=== PATIENT | male | born 1990 | race Caucasian/White ===

== ENCOUNTER 2021-11-24 12:27 | Inpatient (IN) | payer MEDICARE, MEDICAID, SELFPAY ==
--- NOTE | ~2021-11-24 | XR_ITS ---
EXAMINATION: XR CHEST CLINICAL INFORMATION: Cough. COMPARISON: None TECHNIQUE: 2 views of the chest were obtained. FINDINGS: The lungs are well-expanded with patchy opacity seen in the lingula and right middle lobe suspicious for developing infiltrate. The upper lungs are clear. The heart size and progress clarities normal. No gross bony abnormality seen. XR/XR chest 2V IMPRESSION: Patchy opacity seen in the lingula and right middle lobe suspicious for developing infiltrates.
--- NOTE | ~2021-11-24 | CT_ITS ---
EXAMINATION: CT ANGIOGRAM OF THE CHEST WITH AND WITHOUT CONTRAST (CT PULMONARY ANGIOGRAM FOR PE) CLINICAL INFORMATION: Shortness of breath, elevated d-dimer. COMPARISON: Chest radiograph done earlier today at 1:25 PM. TECHNIQUE: Prior to contrast administration, noncontrast localization images were obtained. Subsequently, multidetector volumetric imaging was performed from the thoracic inlet to below the diaphragms following the administration of 75 mL Omnipaque 350 intravenous contrast. No contrast reaction reported Sagittal, coronal, and MIP oblique sagittal reformatted images were obtained on the CT workstation, uploaded to PACS, and reviewed. This CT examination was performed using dose optimization techniques as appropriate, variously including the following: *Automated exposure control *Adjustment of mA and/or kV according to patient size (this includes techniques or standardized protocols for targeted exams where dose is matched to indication/reason for exam; i.e. extremities or head) *Use of iterative reconstruction technique Total exam dose-length product 316 mGy-cm FINDINGS: QUALITY OF STUDY/CONTRAST BOLUS: Suboptimal. PULMONARY ARTERIES: Evaluation of segmental and subsegmental branches is essentially nondiagnostic due to motion and overlying airspace opacities. No central pulmonary emboli are visualized. THORACIC AORTA: No aneurysm or dissection. LUNG: Multifocal airspace opacities with a predilection for the peripheral and lower lungs. In this setting, evaluation of pulmonary nodules is suboptimal. PLEURA: No pleural effusion or pneumothorax. MEDIASTINUM: Normal heart size. No pericardial effusion. No evidence of septal bowing or right heart strain. There are a few prominent mediastinal and hilar lymph nodes, for instance measuring up to 0.8 cm in maximum short axis in the prevascular space (5:158). There is a 0.9 cm hypoattenuating nodule in the left lobe of the thyroid which does not meet the criteria for further follow-up. CHEST WALL/AXILLA: No axillary or internal mammary lymphadenopathy. OSSEOUS STRUCTURES: No acute or suspicious osseous abnormality. UPPER ABDOMEN: Unremarkable. No reflux of contrast into the hepatic veins to suggest elevated right heart pressures. CT/CT angio chest PE protocol IMPRESSION: Limited evaluation of pulmonary emboli due to motion and overlying airspace opacities making visualization of segmental and subsegmental branches essentially nondiagnostic. No central pulmonary emboli. No evidence of increased right-sided heart pressures. Extensive multifocal airspace opacities. Enlarged mediastinal and hilar lymph nodes are likely reactive. VTE: indeterminate
[2021-11-24 13:10] VITALS: PULSE 114; RESP 18; TEMP 37.8; O2SAT 89; BMI 25.8
[2021-11-24 14:30] LABS: MANUAL DIFF FLAG NO
[2021-11-24 14:34] LABS: Hematocrit 41.6 % (42.0-52.0); Hemoglobin 14.4 g/dl (14.0-18.0); Imm Gran Abs Auto 0.02 X10*3/uL (0.00-0.03); Imm Gran Pct Auto 0.3 % (0.0-0.4); Lymphocytes Absolute Auto 0.8 X10*3/uL (1.2-4.9); Lymphocytes Percent Auto 11.7 % (20-40); Mean Corpuscular HGB Conc 34.6 g/dl (31.0-36.0); Mean Corpuscular Hemoglobin 30.6 pg (27.0-33.0); Mean Corpuscular Volume 88.3 fL (80.0-98.0); Monocytes Absolute Auto 0.2 X10*3/uL (0.1-1.2); Monocytes Percent Auto 3.6 % (2-11); Neutrophils Absolute Auto 5.6 x10*3/uL (2.0-8.3); Neutrophils Percent Auto 84.4 % (45-73); Platelet Count 148 X10*3/uL (160-400); Red Blood Count 4.71 X10*6/uL (4.60-5.80); Red Cell Distribution Width 12.3 % (11.0-16.0); White Blood Count 6.7 X10*3/uL (4.8-10.8)
[2021-11-24 14:41] LABS: COVID-19 Test Positive (Negative)
[2021-11-24 14:43] LABS: D Dimer High Sensitivity 654 NG/ML
[2021-11-24 14:47] LABS: Alanine Aminotransferase 52 U/L (0-40); Albumin Level 3.9 g/dL (3.5-5.0); Alkaline Phosphatase 42 U/L (39-117); Anion Gap 12 (12-20); Aspartate Amino Transferase 84 U/L (5-37); Bilirubin Total 0.6 mg/dL (0.0-1.0); Blood Urea Nitrogen 9 mg/dL (9-16); Calcium 8.7 mg/dL (8.4-10.2); Carbon Dioxide 28 mmol/L (22-29); Chloride 99 mmol/L (96-108); Creatinine Clr Calc Pharmacy 128.2; Estimated Glomerular Filt Rate > 60; Glucose Random 104 mg/dL (60-115); Potassium 4.3 mmol/L (3.3-5.1); Sodium 135 mmol/L (135-145); Total Protein 6.7 g/dL (6.5-8.0)
--- NOTE | 2021-11-24 15:36 | ED.SOB ---
HPI - SOB/Dyspnea General Chief Complaint: Dyspnea Stated Complaint: covid+ - diff breathing Time Seen by Provider: 11/24/21 15:13 History of Present Illness HPI Narrative: Patient is a 31-year-old male with no significant past medical history. He reports that he has been symptomatic for COVID-19 time x 9 days, tested positive 7 days ago. Has not been vaccinated for COVID-19. Initially reports complaints of body aches, fevers, fatigue, headaches, sore throat. Over the past 3 days he has developed productive cough, dyspnea with exertion, and chest discomfort with coughing and deep breathing. MD elicited complaint: shortness of breath, cough and pain with inspiration Onset (ago): day(s) Context: recent illness Timing: progressively worsening Exacerbating factors: exertion Relieving factors: rest Associated symptoms: pain with inspiration, cough and sputum production Treatment prior to arrival: none Related Data Home oxygen amount: none Allergies Allergy/AdvReac Type Severity Reaction Status Date / Time No Known Allergies Allergy Verified 11/24/21 13:09 Review of Systems Review of Systems: Constitutional: No weight loss, fever, chills, weakness or fatigue. HEENT: No visual loss, blurred vision, double vision or yellow sclera. No hearing loss, sneezing, congestion, runny nose or sore throat. Skin: No rash or itching. Cardiovascular: + chest discomfort is noted in the HPI. No palpitations or pedal edema. Respiratory: + cough, dyspnea on exertion Gastrointestinal: No anorexia, nausea, vomiting or diarrhea. No abdominal pain or blood in stool. Genitourinary: No burning micturition. No urinary frequency or incontinence. Neurologic: No headache, dizziness, syncope, unilateral weakness, ataxia, numbness or tingling in the extremities. No change in bowel or bladder control. Musculoskeletal: No muscle pain, back pain, joint pain or stiffness. Hematologic: No bleeding or bruising. Lymphatics: No enlarged lymph nodes. Psychiatric:No depression or anxiety. Endocrine: No reports of sweating. No cold or heat intolerance. No polyuria or polydipsia. FORMERLY [facility], [facility]–1983 Past Medical History Attestation statement: The following information was validated with the patient. Source: old records reviewed Social History Social History (Updated 11/24/21 @ 17:52 by Anna Ulrich MD) Patient Tobacco Use Status: Never used Tobacco Advance Directives: No Advance Directives Information Provided: Yes Physical Exam Vital Signs: Vital Signs: Last Vital Signs Temp 100.8 F H 11/24/21 17:16 Pulse 97 11/24/21 17:16 Resp 22 H 11/24/21 17:16 BP 125/74 11/24/21 17:16 Pulse Ox 95 11/24/21 17:16 BMI result Body Mass Index 25.8 Vital signs have been reviewed and appeared to be correct. Blood pressure normal.? Heart rate abnormal, initial tachycardia.? Respiration rate normal. Temperature normal.? Oxygen saturation abnormal, initial hypoxia on exertion. Appearance: Alert.? Oriented X3.? No acute distress.?? Eyes: Pupils equal, round and reactive to light.?? ENT: Pharynx normal.?? Neck: Normal inspection.? Neck supple.?? CVS: Normal heart rate and rhythm.? Pulses normal.?? Respiratory: No respiratory distress, placed on oxygen via nasal cannula. Lungs sounds clear to auscultation except right middle lobe, right lower lobe with rhonchi. Abdomen: Soft and non-tender.?? Skin: Skin warm and dry.? Normal skin color.? Normal skin turgor.?? Extremities: No lower extremity edema.? No calf ttp? Neuro: Oriented X 3.? No motor deficit.? No sensory deficit. Course Course Course Narrative: 1530: 31-year-old male with COVID-19 infection. Presented to the emergency department with initial O2 saturation 89%, was placed on 2 L via nasal cannula. During initial exam O2 saturation 99% on 2 L via nasal cannula, tachycardic, 108 and febrile 100.6. Chest x-ray concerning for patchy opacity seen in the lingula and right middle lobe suspicious for developing infiltrates. No leukocytosis, mild thrombocytopenia platelet count 148, AST/ALT mildly elevated at 84/52 with no prior labs for comparison. At this time, suspect viral infection due to COVID-19 do not suspect bacterial infection at this time, however, will obtain lactic acid. D-dimer is elevated 654, therefore will do CT angio chest to exclude PE. 1710: Ambulatory trial reveals O2 saturation 89%, tachycardia to 140. CT angio chest revealed extensive multifocal airspace opacities, indeterminate for pulmonary emboli. CRP elevated, 15.16, LDH elevated, 877, ferritin elevated 1089, procalcitonin 0.14. Decadron IV ordered, continues to be febrile, will give Toradol. Spoke with Mich Taylor MD, hospitalist regarding CT scan indeterminate for PE, shared decision making, patient will have Lovenox 1 mg/kilogram. 1753: Dr. Ulrich accepted patient for admission. MDM - SOB/Dyspnea Medical Records Attestation: I reviewed the patient's medical records. Lab Data Attestation: I reviewed the patient's lab results. Result diagrams: 11/24/21 14:24 11/24/21 14:24 Labs: Lab Results 11/24/21 11/24/21 11/24/21 Range/Units 14:24 14:24 14:24 WBC 6.7 (4.8-10.8) X10*3/uL RBC 4.71 (4.60-5.80) X10*6/uL Hgb 14.4 (14.0-18.0) g/dl Hct 41.6 L (42.0-52.0) % MCV 88.3 (80.0-98.0) fL MCH 30.6 (27.0-33.0) pg MCHC 34.6 (31.0-36.0) g/dl RDW 12.3 (11.0-16.0) % Plt Count 148 L (160-400) X10*3/uL MPV 10.0 (9.4-12.4) fL Immature Gran % (Auto) 0.3 (0.0-0.4) % Neut % (Auto) 84.4 H (45-73) % Lymph % (Auto) 11.7 L (20-40) % [place] % (Auto) 3.6 (2-11) % Eos % (Auto) 0.0 (0-4) % Baso % (Auto) 0.0 (0-2) % Lymph # (Auto) 0.8 L (1.2-4.9) X10*3/uL [place] # (Auto) 0.2 (0.1-1.2) X10*3/uL Eos # (Auto) 0.0 (0.0-0.4) X10*3/uL Baso # (Auto) 0.0 (0.0-0.2) X10*3/uL Abs Immat Gran (auto) 0.02 (0.00-0.03) X10*3/uL Absolute Neuts (auto) 5.6 (2.0-8.3) x10*3/uL Absolute Nucleated RBC 0.000 (0.0-0.012) X10*3/uL Nucleated RBC % (auto) 0.0 (0.0-0.2) /100WBC D-Dimer High Sensitivty NG/ML Sodium 135 (135-145) mmol/L Potassium 4.3 (3.3-5.1) mmol/L Chloride 99 (96-108) mmol/L Carbon Dioxide 28 (22-29) mmol/L Anion Gap 12 (12-20) BUN 9 (9-16) mg/dL Creatinine 0.85 (0.5-1.4) mg/dL Estim Creat Clear Calc 128.2 Estimated GFR > 60 Random Glucose 104 (60-115) mg/dL Lactic Acid (0.5-2.0) mmol/L Calcium 8.7 (8.4-10.2) mg/dL Ferritin 1089 H (20-250) ng/mL Total Bilirubin 0.6 (0.0-1.0) mg/dL AST 84 H (5-37) U/L ALT 52 H (0-40) U/L Alkaline Phosphatase 42 (39-117) U/L Lactate Dehydrogenase 877 H (118-273) U/L C-Reactive Protein 15.16 H (< or = 0.50) mg/dL Total Protein 6.7 (6.5-8.0) g/dL Albumin 3.9 (3.5-5.0) g/dL Procalcitonin ng/mL COVID-19 (VIDA) Positive A (Negative) COVID-19 Clin Com See Note 11/24/21 11/24/21 11/24/21 Range/Units 14:24 14:25 15:46 WBC (4.8-10.8) X10*3/uL RBC (4.60-5.80) X10*6/uL Hgb (14.0-18.0) g/dl Hct (42.0-52.0) % MCV (80.0-98.0) fL MCH (27.0-33.0) pg MCHC (31.0-36.0) g/dl RDW (11.0-16.0) % Plt Count (160-400) X10*3/uL MPV (9.4-12.4) fL Immature Gran % (Auto) (0.0-0.4) % Neut % (Auto) (45-73) % Lymph % (Auto) (20-40) % [place] % (Auto) (2-11) % Eos % (Auto) (0-4) % Baso % (Auto) (0-2) % Lymph # (Auto) (1.2-4.9) X10*3/uL [place] # (Auto) (0.1-1.2) X10*3/uL Eos # (Auto) (0.0-0.4) X10*3/uL Baso # (Auto) (0.0-0.2) X10*3/uL Abs Immat Gran (auto) (0.00-0.03) X10*3/uL Absolute Neuts (auto) (2.0-8.3) x10*3/uL Absolute Nucleated RBC (0.0-0.012) X10*3/uL Nucleated RBC % (auto) (0.0-0.2) /100WBC D-Dimer High Sensitivty 654 NG/ML Sodium (135-145) mmol/L Potassium (3.3-5.1) mmol/L Chloride (96-108) mmol/L Carbon Dioxide (22-29) mmol/L Anion Gap (12-20) BUN (9-16) mg/dL Creatinine (0.5-1.4) mg/dL Estim Creat Clear Calc Estimated GFR Random Glucose (60-115) mg/dL Lactic Acid 1.2 (0.5-2.0) mmol/L Calcium (8.4-10.2) mg/dL Ferritin (20-250) ng/mL Total Bilirubin (0.0-1.0) mg/dL AST (5-37) U/L ALT (0-40) U/L Alkaline Phosphatase (39-117) U/L Lactate Dehydrogenase (118-273) U/L C-Reactive Protein (< or = 0.50) mg/dL Total Protein (6.5-8.0) g/dL Albumin (3.5-5.0) g/dL Procalcitonin 0.14 ng/mL COVID-19 (VIDA) (Negative) COVID-19 Clin Com Imaging Data Chest x-ray: Attestation: I personally reviewed and interpreted this imaging study as follows: Radiologist's impression: IMPRESSION: Patchy opacity seen in the lingula and right middle lobe suspicious for developing infiltrates. CT scan - chest: Attestation: I personally reviewed and interpreted this imaging study as follows: Radiologist's impression: IMPRESSION: Limited evaluation of pulmonary emboli due to motion and overlying airspace opacities making visualization of segmental and subsegmental branches essentially nondiagnostic. ? No central pulmonary emboli. ? No evidence of increased right-sided heart pressures. ? Extensive multifocal airspace opacities. ? Enlarged mediastinal and hilar lymph nodes are likely reactive. ? VTE: indeterminate ECG Data Attestation: I personally reviewed and interpreted this ECG as follows: ECG interpretation date: 11/24/21 ECG interpretation time: 17:04 Prior ECG tracings: not available for review Interpretation: Rate: 97 Rhythm:?normal sinus rhythm [place]:?normal Normal P waves.? Normal [place].?? Normal QRS complex.?? ST T wave :??no ST elevation or depression. no acute ischemia qTC: 426 prior studies:?none The study has been interpreted contemporaneously by me. Discharge Plan Discharge Clinical Impression: COVID-19, Pneumonia, Hypoxia Patient Disposition: Admitted As Inpatient
[2021-11-24 15:49] VITALS: PULSE 100; RESP 20; O2SAT 95
[2021-11-24] MEDS: 0.9 % Sodium Chloride 1,000 ML 999 ML IV (15:49)
[2021-11-24 15:57] VITALS: BP 109/65; PULSE 98; RESP 16; TEMP 38.1; O2SAT 97
--- NOTE | 2021-11-24 15:58 | ECG_ITS ---
Test Reason : SOB Blood Pressure : / mmHG Vent. Rate : 097 BPM Atrial Rate : 097 BPM P-R Int : 144 ms QRS Dur : 086 ms QT Int : 336 ms P-R-T Axes : 067 035 048 degrees QTc Int : 426 ms Normal sinus rhythm Normal ECG No previous ECGs available Referred By: Prerna Fitzgerald Electronically Signed By:ALMA TREJO MD
[2021-11-24 16:19] LABS: Lactic Acid 1.2 mmol/L (0.5-2.0)
[2021-11-24] MEDS: Acetaminophen 325 MG TABLET 650 MG PO (16:19)
[2021-11-24] MEDS: iohexoL 350 MG/ML 100 ML INFUS..BTL IV (16:28)
[2021-11-24 16:48] LABS: C Reactive Protein 15.16 mg/dL (< or = 0.50); Lactate Dehydrogenase 877 U/L (118-273)
[2021-11-24 17:10] VITALS: PULSE 134; O2SAT 88
[2021-11-24 17:10] LABS: Ferritin 1089 ng/mL (20-250)
[2021-11-24 17:13] LABS: Procalcitonin 0.14 ng/mL
[2021-11-24 17:16] VITALS: BP 125/74; PULSE 97; RESP 22; TEMP 38.2; O2SAT 95
--- NOTE | 2021-11-24 17:18 | PC.NURSE ---
patient went for a walk ,o2 sat drop to 88 % ,and heart rate went up to 134 ,katherine pedroza is aware .
--- NOTE | 2021-11-24 17:48 | P.HPHOSP_ITS ---
History of Present Illness Date of Service: 11/24/21 Attending physician on admission: Anna Ulrich Chief Complaint: Shortness of breath 31-year-old gentleman with no significant past medical history presented to [facility] with 9 days of shortness of breath, cough productive of clear phlegm, generalized body ache, fatigue, on and off fever chills, Patient got tested for COVID-19 7 days ago but since his shortness of breath was not improving he came to the emergency room at present he denies any headache, denies sore throat, denies fever, complaining of chest pain with deep breathing workup in the emergency room showed an elevated AST ALT 84/52, no leukocytosis, procalcitonin 0.14 D-dimer 654, ferritin 1089, LDH 877 and an elevated CRP 15.16 CTA chest indeterminate for PE patient treated with 1 dose of Lovenox 1 milligram/kg and now being admitted to [facility] due to hypoxia with finger oximetry 88% on room air. Review of Systems Review of Systems: General no headache, no dizziness no fever chills. CVS chest pain with deep breathing and coughing Respiratory productive cough mostly clear at times yellow color Gastrointestinal no nausea no vomiting, no abdominal pain no urinary urgency frequency Musculoskeletal generalized pain Skin no rash Yes all other systems are reviewed and are negative PMFSH Pertinent family history: Father alive has history of colon cancer Mother is alive has generalized muscular pain Social History (Updated 11/24/21 @ 17:52 by Anna Ulrich MD) Household Members: Spouse Housing: House Patient Tobacco Use Status: Never used Tobacco Use of substances other than those prescribed or required for medical reasons: No Have you been hit, kicked, punched, or otherwise hurt by someone within the past year? If so, by whom?: No Do you feel safe in your current relationship?: Yes Is there a partner from a previous relationship who is making you feel unsafe now?: No Are you made to feel afraid or neglected: No Advance Directives: No Advance Directives Information Provided: Yes Do you have thoughts of harming others: None Do you have a plan to hurt others: No Plan Recently lost weight without trying: No Nutrition Risks: No Nutritional Risk Meds Allergies Allergy/AdvReac Type Severity Reaction Status Date / Time No Known Allergies Allergy Verified 11/24/21 13:09 Active Medications: Current Medications Acetaminophen (Acetaminophen 325 Mg Tablet) 650 mg PO Q6H PRN PRN Reason: Pain, Mild (Pain Scale 1-3) Ondansetron HCl (Ondansetron Hcl 4 Mg/2 Ml Vial) 4 mg IVPUSH Q8H PRN PRN Reason: Nausea and Vomiting Sodium Chloride (0.9 % Sodium Chloride Flush 3 Ml Syringe) 3 ml IVFLUSH QSHIFT [facility] Home Medications Medication Instructions Recorded Confirmed Last Taken Type Zinc/Copper Supplement 1 tab PO DAILY 11/24/21 11/24/21 11/24/21 History ascorbic acid (vitamin C) 500 mg 500 mg PO DAILY 11/24/21 11/24/21 11/24/21 History tablet (Vitamin C) cholecalciferol (vitamin D3) 25 25 mcg PO DAILY 11/24/21 11/24/21 11/24/21 History mcg (1,000 unit) tablet (Vitamin D3) multivitamin 1 tab PO DAILY 11/24/21 11/24/21 11/24/21 History vitamin K2 40 mcg tablet 40 mcg PO DAILY 11/24/21 11/24/21 11/24/21 History Physical Exam Vital Signs and Narrative: Vital Signs: Last Vital Signs Temp 100.8 F H 11/24/21 17:16 Pulse 97 11/24/21 17:16 Resp 22 H 11/24/21 17:16 BP 125/74 11/24/21 17:16 Pulse Ox 95 11/24/21 17:16 BMI result Body Mass Index 25.8 General awake, alert, no acute distress. HEENT pupil equal round reactive to light and accommodation extraocular muscles intact, moist mucous membranes Neck supple no JVD. CVS regular rate rhythm, Respiratory lungs bilateral dry crackles, no respiratory distress, no wheeze. Gastrointestinal abdomen soft, nontender, bowel sounds audible, no guarding , no rigidity. Extremities no edema. Neuro nonfocal Skin no rash Psych appropriate affect Results Labs CBC and Chem 7: 11/24/21 14:24 11/24/21 14:24 Labs: Laboratory Results - last 24 hr 11/24/21 11/24/21 11/24/21 14:24 14:24 14:24 MCV 88.3 MCH 30.6 MCHC 34.6 RDW 12.3 Plt Count 148 L MPV 10.0 Immature Gran % (Auto) 0.3 Neut % (Auto) 84.4 H Lymph % (Auto) 11.7 L [place] % (Auto) 3.6 Eos % (Auto) 0.0 Baso % (Auto) 0.0 Lymph # (Auto) 0.8 L [place] # (Auto) 0.2 Eos # (Auto) 0.0 Baso # (Auto) 0.0 Abs Immat Gran (auto) 0.02 Absolute Neuts (auto) 5.6 Absolute Nucleated RBC 0.000 Nucleated RBC % (auto) 0.0 D-Dimer High Sensitivty Anion Gap 12 Estim Creat Clear Calc 128.2 Estimated GFR > 60 Random Glucose 104 Lactic Acid Calcium 8.7 Ferritin 1089 H Total Bilirubin 0.6 AST 84 H ALT 52 H Alkaline Phosphatase 42 Lactate Dehydrogenase 877 H C-Reactive Protein 15.16 H Total Protein 6.7 Albumin 3.9 Procalcitonin COVID-19 (VIDA) Positive A COVID-19 Clin Com See Note 11/24/21 11/24/21 11/24/21 14:24 14:25 15:46 MCV MCH MCHC RDW Plt Count MPV Immature Gran % (Auto) Neut % (Auto) Lymph % (Auto) [place] % (Auto) Eos % (Auto) Baso % (Auto) Lymph # (Auto) [place] # (Auto) Eos # (Auto) Baso # (Auto) Abs Immat Gran (auto) Absolute Neuts (auto) Absolute Nucleated RBC Nucleated RBC % (auto) D-Dimer High Sensitivty 654 Anion Gap Estim Creat Clear Calc Estimated GFR Random Glucose Lactic Acid 1.2 Calcium Ferritin Total Bilirubin AST ALT Alkaline Phosphatase Lactate Dehydrogenase C-Reactive Protein Total Protein Albumin Procalcitonin 0.14 COVID-19 (VIDA) COVID-19 Clin Com Imaging Radiologist's Impressions: Impressions Chest X-Ray 11/24/21 13:22 IMPRESSION: Patchy opacity seen in the lingula and right middle lobe suspicious for developing infiltrates. Chest CTA 11/24/21 16:29 IMPRESSION: Limited evaluation of pulmonary emboli due to motion and overlying airspace opacities making visualization of segmental and subsegmental branches essentially nondiagnostic. No central pulmonary emboli. No evidence of increased right-sided heart pressures. Extensive multifocal airspace opacities. Enlarged mediastinal and hilar lymph nodes are likely reactive. VTE: indeterminate Assessment and Plan (1) COVID-19: Status: Acute (2) Pneumonia: Status: Acute (3) Hypoxia: Status: Acute 31-year-old gentleman with no past medical history unvaccinated for COVID- 19 diagnosed to have COVID 7 days ago but symptom developed 9 days ago presented to [facility] due to persistent shortness of breath worse with exertion deep breathing, fever chills resolved. Acute hypoxic respiratory failure due to COVID-19 infection Will admit to isolation Treat patient with Decadron 6 mg IV times 10 days, add doxycycline and empirically for bacterial infection Treat with cough medications analgesics and oxygen, wean oxygen as tolerated patient is not on home O2 Patient is unvaccinated for COVID Noted to have elevated LFTs and since symptoms started several days ago does not qualify for remdesivir Will add vitamin-C Pepcid and zinc follow clinical course closely Lovenox subQ 40 mg b.i.d. Follow COVID markers noted to have significantly elevated CRP, ferritin and LDH. Quality Stroke Does the patient have a stroke diagnosis?: No VTE Prior VTE?: No VTE Risk Level:: Medical - moderate - high VTE Device Contraindication: Treatment Not Indicated VTE Drug Contraindication: N/A - Med Ordered
[2021-11-24] MEDS: dexAMETHasone sod phosphate 4 MG/ML VIAL 6 MG IVPUSH (18:15)
[2021-11-24] MEDS: guaiFENesin DM 200/20/10 ML 10 ML SYRUP PO (18:15)
[2021-11-24] MEDS: Ketorolac Tromethamine 30 MG/ML VIAL IVPUSH (18:16)
[2021-11-24] MEDS: Doxycycline Hyclate 100 MG in 0.9 % Sodium Chloride 250 ML 166.67 MG IV (18:17)
[2021-11-24 19:49] VITALS: PULSE 87; RESP 22; O2SAT 97
--- NOTE | 2021-11-24 19:54 | PHA.MEDREC ---
Pharmacy Consult ? Medication Reconciliation Pharmacy has completed the medication reconciliation. Spoke with patient, pt is only taking vitamins OTC
--- NOTE | 2021-11-24 22:50 | PC.NURSE ---
I assumed care of this pt at 1900. He has remained alert and oriented x 3, without chest pain. He states while at rest he doesn't feel short of breath but he feels as if he cannot take a deep breath, especially while exerting himself. RR 18, non-labored, no cyanosis, he is speaking in full sentences. O2 sat's 95% on 1L nasal cannula. Pt has ambulated to and from the bathroom outside of bed 15 and back to bed 15 independently and with steady gait. Pt is taking PO food and fluids without difficulty. Pt is aware that he is TBADm and is awaiting a bed assignment and he verbalizes an understanding of this.
[2021-11-25] VITALS: BP 114/57; PULSE 81; RESP 18; TEMP 36.3; O2SAT 98
[2021-11-25 00:31] VITALS: BMI 26.4
[2021-11-25] MEDS: guaiFENesin DM 200/20/10 ML 10 ML SYRUP PO ×2 (00:34→10:38)
[2021-11-25] MEDS: 0.9 % Sodium Chloride Flush 3 ML SYRINGE IVFLUSH ×2 (00:34→08:41)
[2021-11-25 03:46] VITALS: BP 117/60; PULSE 70; RESP 18; TEMP 35.9; O2SAT 98
[2021-11-25] MEDS: Doxycycline Hyclate 100 MG in 0.9 % Sodium Chloride 250 ML 166.67 MG IV (05:20)
[2021-11-25 08:00] VITALS: BP 102/60; PULSE 94; RESP 18; TEMP 36.4; O2SAT 95
[2021-11-25] MEDS: Famotidine 20 MG TABLET PO (08:41)
[2021-11-25] MEDS: dexAMETHasone sod phosphate 4 MG/ML VIAL 6 MG IVPUSH (08:41)
[2021-11-25] MEDS: Ascorbic Acid 500 MG TABLET PO (08:41)
[2021-11-25] MEDS: Enoxaparin Sodium 40 MG/0.4 ML SYRINGE SUBCUT (08:41)
[2021-11-25] MEDS: Zinc Sulfate 220 MG CAPSULE PO (08:41)
[2021-11-25 10:40] VITALS: PULSE 93; O2SAT 95
--- NOTE | 2021-11-25 11:20 | PM.DS ---
DS: Providers Provider Date of Service: 11/25/21 Date of admission: 11/24/21 17:45 Primary care physician: None Physician DS: Diagnosis Discharge Diagnosis (1) COVID-19: Status: Acute (2) Pneumonia: Status: Acute (3) Hypoxia: Status: Acute DS: Summary Hospital Course Hospital Course: Chief Complaint: Shortness of breath 31-year-old gentleman with no significant past medical history presented to [facility] with 9 days of shortness of breath, cough productive of clear phlegm, generalized body ache, fatigue, on and off fever chills, Patient got tested for COVID-19 7 days ago but since his shortness of breath was not improving he came to the emergency room at present he denies any headache, denies sore throat, denies fever, complaining of chest pain with deep breathing workup in the emergency room showed an elevated AST ALT 84/52, no leukocytosis, procalcitonin 0.14 D-dimer 654, ferritin 1089, LDH 877 and an elevated CRP 15.16 CTA chest indeterminate for PE patient treated with 1 dose of Lovenox 1 milligram/kg and now being admitted to [facility] due to hypoxia with finger oximetry 88% on room air. Hospital course 31-year-old gentleman with no past medical history unvaccinated for COVID-19 diagnosed to have COVID 7 days ago but symptom developed 9 days ago presented to [facility] due to persistent shortness of breath worse with exertion deep breathing, fever chills resolved, patient admitted to medical floor due to hypoxic respiratory failure with finger oximetry 88% on room air patient treated with IV Decadron, empiric antibiotic doxycycline vitamin-C , cough medication and Pepcid patient's symptoms significantly improved patient oxygenation is stable on room air at rest and with ambulation at 92-93%, therefore patient is being discharged home to finish a total 10 day course of Decadron, patient noted to have elevated CRP ferritin and LDH due to COVID infection he has been recommended to take vitamin-C, zinc and Pepcid and also to drink plenty of fluids and rest. Patient did not qualify for remdesivir since presented 9 days after symptom onset Time Spent with Patient Time attestation: Total time spent providing and/or coordinating discharge services: Discharge coordination time: Greater than 30 minutes Quality: Stroke Does the patient have a stroke diagnosis?: No Physical Exam Vital Signs: Vital Signs: Last Vital Signs Temp 97.6 F 11/25/21 08:00 Pulse 94 11/25/21 08:00 Resp 18 11/25/21 08:00 BP 102/60 11/25/21 08:00 Pulse Ox 95 11/25/21 08:00 BMI result Body Mass Index 26.4 General awake, alert, no acute distress.? Neck supple no JVD. CVS? regular rate rhythm, Respiratory lungs bilateral basilar dry crackles, no respiratory distress, no wheeze. Gastrointestinal abdomen soft, nontender, bowel sounds audible, no guarding , no rigidity. Extremities no edema. Neuro nonfocal Skin no rash Psych appropriate affect DS: Data Data Completed and Pending Labs on day of discharge: Laboratory Results - last 24 hr 11/24/21 11/24/21 11/24/21 14:24 14:24 14:24 WBC 6.7 RBC 4.71 Hgb 14.4 Hct 41.6 L MCV 88.3 MCH 30.6 MCHC 34.6 RDW 12.3 Plt Count 148 L MPV 10.0 Immature Gran % (Auto) 0.3 Neut % (Auto) 84.4 H Lymph % (Auto) 11.7 L Powell % (Auto) 3.6 Eos % (Auto) 0.0 Baso % (Auto) 0.0 Lymph # (Auto) 0.8 L Powell # (Auto) 0.2 Eos # (Auto) 0.0 Baso # (Auto) 0.0 Abs Immat Gran (auto) 0.02 Absolute Neuts (auto) 5.6 Absolute Nucleated RBC 0.000 Nucleated RBC % (auto) 0.0 D-Dimer High Sensitivty Sodium 135 Potassium 4.3 Chloride 99 Carbon Dioxide 28 Anion Gap 12 BUN 9 Creatinine 0.85 Estim Creat Clear Calc 128.2 Estimated GFR > 60 Random Glucose 104 Lactic Acid Calcium 8.7 Ferritin 1089 H Total Bilirubin 0.6 AST 84 H ALT 52 H Alkaline Phosphatase 42 Lactate Dehydrogenase 877 H C-Reactive Protein 15.16 H Total Protein 6.7 Albumin 3.9 Procalcitonin COVID-19 ([facility]) Positive A COVID-19 Clin Com See Note 11/24/21 11/24/21 11/24/21 14:24 14:25 15:46 WBC RBC Hgb Hct MCV MCH MCHC RDW Plt Count MPV Immature Gran % (Auto) Neut % (Auto) Lymph % (Auto) Powell % (Auto) Eos % (Auto) Baso % (Auto) Lymph # (Auto) Powell # (Auto) Eos # (Auto) Baso # (Auto) Abs Immat Gran (auto) Absolute Neuts (auto) Absolute Nucleated RBC Nucleated RBC % (auto) D-Dimer High Sensitivty 654 Sodium Potassium Chloride Carbon Dioxide Anion Gap BUN Creatinine Estim Creat Clear Calc Estimated GFR Random Glucose Lactic Acid 1.2 Calcium Ferritin Total Bilirubin AST ALT Alkaline Phosphatase Lactate Dehydrogenase C-Reactive Protein Total Protein Albumin Procalcitonin 0.14 COVID-19 ([facility]) COVID-19 Clin Com Discharge Plan Discharge Patient Disposition: Home, Self-Care Discharge Diagnosis: Acute hypoxic respiratory failure due to COVID-19 Referrals: Physician,None [Primary Care Provider] - 1 Week Discharge Medications: New dextromethorphan-guaifenesin 10-100 mg/5 mL Syrup 10 ml PO Q6H Qty: 240 RF: 0 famotidine 20 mg Tablet 20 mg PO BID Qty: 60 RF: 0 dexamethasone [Decadron] 6 mg tablet 6 mg PO DAILY Qty: 8 RF: 0 Continued multivitamin Tablet 1 tab PO DAILY RF: 0 ascorbic acid (vitamin C) [Vitamin C] 500 mg Tablet 500 mg PO DAILY RF: 0 cholecalciferol (vitamin D3) [Vitamin D3] 25 mcg (1,000 unit) Tablet 25 mcg PO DAILY RF: 0 vitamin K2 40 mcg Tablet 40 mcg PO DAILY RF: 0 Zinc/Copper Supplement 1 tab PO DAILY RF: 0 Discharge Orders: Discharge Order (Routine); Ordered 11/25/21 Ordered By: Anna Ulrich Diet: advance to usual diet Activity on Discharge: As tolerated Stand Alone Forms: Patient Portal Discharge page Care Plan Goals: COVID-19 infection, hypoxia resolved take Decadron 6 mg by mouth daily for 8 more days, take Pepcid 20 mg twice daily and take as needed cough medication, rest plenty of fluids Return to check with worsening symptoms Health Concerns: COVID-19 infection Plan of Treatment: Follow-up with PCP in 1 week Assessment: per Discharge summary
[2021-11-25 11:31] VITALS: BP 112/60; PULSE 65; RESP 18; TEMP 36.6; O2SAT 94
--- NOTE | 2021-11-26 08:40 | MHC.CM.PN ---
Patient d/c'd home before case management could see patient.
== END 2021-11-25 12:35 | disposition home or self-care (01) | DRG 177 ==
LOC: HO.ED 17:28 → HO.EDOVER 18:07 → HO.IMC 21:32
PROVIDERS: Nurse Practitioner Family; Admitting Provider Hospitalist; Emergency Provider Emergency Medicine; Visit Provider Hospitalist
DX: U07.1 COVID-19 (principal); J96.01 Acute respiratory failure with hypoxia; J12.82 Pneumonia due to coronavirus disease 2019; Z79.899 Other long term (current) drug therapy
CPT/HCPCS: 36415; 71046; 71275; 80053; 82728; 83605; 83615; 84145; 85025; 85379; 86140; 87635; 93005; 99285; J1100; J1650; J1885; Q9967